=== PATIENT | female | born 2000 | race Hispanic/Latino ===

== ENCOUNTER 2019-03-21 18:02 | Emergency (ER) | payer SELFPAY ==
[2019-03-21 20:35] LABS: APPEARANCE,URINE Clear (CLEAR); BILIRUBIN,URINE Negative (NEGATIVE); COLOR,URINE Yellow (YELLOW); GLUCOSE, URINE (UA) Negative (NEGATIVE); KETONES,URINE Negative (NEGATIVE); LEUKOCYTE ESTERASE ,URINE Moderate (NEGATIVE); NITRATE,URINE Negative (NEGATIVE); OCCULT BLOOD,URINE Large (NEGATIVE); PH,URINE 6.5 (5.0-8.0); PROTEIN,URINE POS 1+ mg/dL (NEGATIVE)
[2019-03-21 20:38] LABS: HCG,QUAL RESULT NEGATIVE (NEGATIVE)
[2019-03-21 20:46] LABS: BACTERIA,URINE Moderate /HPF (None Seen); RBC,URINE 26-50 /HPF (0-1); WBC,URINE 51-100 /HPF (0-1)
[2019-03-21 20:47] LABS: MUCUS,URINE Moderate LPF (None Seen); SQUAMOUS EPITHELIAL CELL,UR Few /HPF (0-2)
[2019-03-21] MEDS ORDERED: LIDOCAINE HCL-MPF 1% 2ML VIAL ONE (21:03)
[2019-03-21] MEDS ORDERED: CEFTRIAXONE SODIUM 1 GM ONE (21:03)
== END 2019-03-21 21:38 | disposition home or self-care (01) ==
LOC: EDH 18:02
DX: N39.0 Urinary tract infection, site not specified (principal)
CPT/HCPCS: 81001; 81025; 87077; 87088; 87186; 96372; 99284; J0696; J3490

== ENCOUNTER 2021-06-03 15:35 | Emergency (ER) | payer OTHER ==
[~2021-06-03] VITALS: Ht 160 cm; Wt 90.7 kg
[2021-06-03 15:36] VITALS: BP 147/97
[2021-06-03 16:12] LABS: APPEARANCE,URINE CLOUDY (CLEAR); BILIRUBIN,URINE MODERATE (NEGATIVE); COLOR,URINE YELLOW (YELLOW); GLUCOSE, URINE (UA) NEGATIVE (NEGATIVE); KETONES,URINE 5 mg/dL (NEGATIVE); LEUKOCYTE ESTERASE ,URINE MODERATE (NEGATIVE); NITRATE,URINE NEGATIVE (NEGATIVE); OCCULT BLOOD,URINE LARGE (NEGATIVE); PROTEIN,URINE 100 mg/dL (NEGATIVE)
[2021-06-03 16:16] LABS: HCG,QUAL RESULT NEGATIVE (NEGATIVE)
[2021-06-03 16:18] LABS: WBC,URINE 26-50 /HPF (0-1)
[2021-06-03 16:19] LABS: BACTERIA,URINE Few /HPF (None Seen); RBC,URINE >100 /HPF (0-1); SQUAMOUS EPITHELIAL CELL,UR None Seen /HPF (0-2)
[2021-06-03] MEDS ORDERED: PHEN-847 PO (16:22)
[2021-06-03] MEDS ORDERED: CEPH500B PO (16:22)
[2021-06-03] MEDS ORDERED: PHENAZOPYRIDINE HCL 200 MG TABLET PO ONE (16:30)
[2021-06-03] MEDS ORDERED: CEFTRIAXONE 1G VIAL IM ONE (16:30)
[2021-06-03] MEDS ORDERED: LIDOCAINE HCL MPF 1% 5ML VIAL ONE (16:34)
== END 2021-06-03 17:09 | disposition home or self-care (01) ==
LOC: EDH 15:35
DX: N39.0 Urinary tract infection, site not specified (principal)
CPT/HCPCS: 81001; 81025; 87088; 96372; 99283; J0696; J3490